=== PATIENT | female | born 1995 | race Caucasian/White ===

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

== ENCOUNTER 2017-08-03 19:49 | Emergency (ER) | payer OTHER ==
[2017-08-03 20:20] VITALS: BP 112/73
[2017-08-03] MEDS ORDERED: predniSONE 20 MG Tab PO STA (20:29)
--- NOTE | 2017-08-03 20:37 | EDM.PDOC ---
ED HPI GENERAL MEDICAL PROBLEM - General Chief Complaint: Skin Complaint Stated Complaint: HIVES ALL OVER BODY SKIN COMPLAINT Time Seen by Provider: 08/03/17 20:14 Source of Information: Reports: Patient, Family (Mother), Significant Other ( Boyfriend) History Limitations: Reports: No Limitations - History of Present Illness INITIAL COMMENTS - FREE TEXT/NARRATIVE: The patient states that she developed generalized urticaria around midnight last night after taking a new control pill that she started this past 07/30/2017. She does not take any other medications. The last food she ate before developing the urticaria was pepperoni pizza around 17:00 yesterday evening. The patient denies associated dyspnea or wheezing, angioedema, gastrointestinal upset or diarrhea. No prior similar symptoms. The patient acknowledges that she is constantly under stress. The patient states that she took Benadryl around 10 AM this, and Claritin around 4:00 PM this afternoon. She states that they helped with her pruritus somewhat. The patient does not have a PCP. Bladder Pain Score (Numeric/FACES): 8 - Related Data Allergies Allergy/AdvReac Type Severity Reaction Status Date / Time No Known Allergies Allergy Verified 11/04/16 19:42 Home Meds: Home Meds EPINEPHrine [Adrenaclick] 1 injection IM ONETIME PRN #1 kit 08/03/17 [Rx] Prednisone [IJD: predniSONE] 1 tab PO QPM #4 tab 08/03/17 [Rx] Past Medical History - Infectious Disease History Infectious Disease History: Reports: Mononucleosis - Past Surgical History HEENT Surgical History: Reports: Oral Surgery ([place] teeth extraction) Musculoskeletal Surgical History: Reports: Arthroscopic Knee (left, x 2) Social & Family History - Tobacco Use Smoking Status *Q: Never Smoker Second Hand Smoke Exposure: Yes - Caffeine Use Caffeine Use: Reports: None - Alcohol Use Alcohol Use History: Yes Alcohol Use Frequency: Socially - Recreational Drug Use Recreational Drug Use: No - Living Situation & Occupation Living situation: Reports: Single, Other (with a friend) Occupation: Employed ([employer]) ED ROS GENERAL - Review of Systems Review Of Systems: ROS reveals no pertinent complaints other than HPI. ED EXAM, SKIN/RASH Exam: See Below Exam Limited By: No Limitations General Appearance: Alert, WD/WN, Mild Distress (Appears uncomfortable) Eye Exam: Bilateral Eye: Normal Inspection Ears: Normal External Exam, Hearing Grossly Normal Nose: Normal Inspection, No Blood Throat/Mouth: Normal Inspection, Normal Lips, Normal Teeth, Normal Gums, Normal Oropharynx, Normal Voice, No Airway Compromise Head: Atraumatic, Normocephalic Neck: Normal Inspection, Full Range of Motion Respiratory/Chest: No Respiratory Distress, Lungs Clear, Normal Breath Sounds, No Accessory Muscle Use. No: Wheezing, Prolonged Expiration Cardiovascular: Normal Peripheral Pulses, Regular Rate, Rhythm, No Gallop, No JVD, No Murmur, No Rub Peripheral Pulses: 4+: Radial (L), Radial (R) GI/Abdominal: Normal Bowel Sounds, Soft, Non-Tender, No Organomegaly, No Distention, No Abnormal Bruit, No Mass (Female) Exam: Deferred Rectal (Female) Exam: Deferred Back Exam: Normal Inspection, Full Range of Motion, NT Extremities: Normal Inspection, Normal Range of Motion, No Pedal Edema, Normal Capillary Refill Neurological: Alert, Oriented, Normal Cognition, No Motor/Sensory Deficits Psychiatric: Normal Affect Skin: Warm, Dry, Intact, Other (Generalized urticaria) Course - Vital Signs Last Recorded V/S: Last Vital Signs Temp 37.4 C 08/03/17 20:20 Pulse 76 08/03/17 20:01 Resp 18 08/03/17 20:20 BP 112/73 08/03/17 20:20 Pulse Ox 99 08/03/17 20:20 - Orders/Labs/Meds Meds: Medications Discontinued Medications Generic Name Dose Route Start Last Admin Trade Name Fredrickq PRN Reason Stop Dose Admin Prednisone 60 mg 08/03/17 20:29 08/03/17 20:36 Prednisone PO 08/03/17 20:30 60 mg ONETIME STA Administration - Re-Assessments/Exams Free Text/Narrative Re-Assessment/Exam: 08/03/17 20:29 The patient presents with approximately 20 hours of generalized urticaria with pruritus, concerning for an allergic reaction, however, this could just as easily be due to idiopathic urticaria, and there are several features that suggested it might be, including that these developed 5 hours after she last ate anything, she does not have angioedema, pulmonary symptoms, or gastrointestinal symptoms, all of which one would ordinarily expect with an allergic reaction to something that she ate. For today's purposes, I will treat the patient with 60 mg prednisone, and discharge her home with a prescription for prednisone 20 mg nightly for the next 4 nights. I will also prescribe an epinephrine autoinjector kit, and refer the patient to an Ornamental Iron Worker Apprentice for evaluation. I advised her to try to stay as cool as possible until the urticaria resolves, and take an antihistamine as needed for pruritus. Departure - Departure Time of Disposition: 20:32 Disposition: Home, Self-Care 01 Condition: Good Clinical Impression: Urticaria - Discharge Information Prescriptions: EPINEPHrine [Adrenaclick] 1 injection IM ONETIME PRN #1 kit PRN Reason: Shortness Of Breath Prednisone [IJD: predniSONE] 1 tab PO QPM #4 tab Instructions: Hives, [id number] Referrals: PCP,None [Primary Care Provider] - Shelly Villegas MD [Ordering Only Provider] - Forms: ED Department Discharge Additional Instructions: You were seen in the emergency room for generalized hives. The cause of your hives is not clear. It may be idiopathic urticaria ("stress hives"), or it may be due to an allergic reaction. You have been started on the steroid prednisone. A prescription for prednisone has been sent to the [facility] located in the [place] store. Take one tablet every evening, starting tomorrow evening, 08/04/2017, as prescribed. You may also take an antihistamine to help reduce itchiness. Try to avoid heat, as heat tends to make hives worse. You can apply a cold pack to especially itchy areas. A prescription for an epinephrine injection kit was also sent to the Pharmacy. Read the instructions carefully to become familiar with the device. Inject yourself in the anterolateral thigh if you're having an allergic reaction that involves wheezing and shortness of breath. If you inject yourself, you MUST go to the closest ER. Follow-up with the Ornamental Iron Worker Apprentice Dr. Villegas at the next available appointment. If any other problems, please do not hesitate to return to the ER.
== END 2017-08-03 20:50 | disposition home or self-care (01) ==
LOC: JD.ED 19:49
DX: L50.9 Urticaria, unspecified (principal)
CPT/HCPCS: 99283; A9270

== ENCOUNTER 2021-03-22 14:21 | Inpatient (IN) | payer OTHER ==
[2021-03-22] MEDS ORDERED: Nalbuphine 10 MG/1 ML Vial IVPUSH PRN (15:22)
[2021-03-22] MEDS ORDERED: Sodium Chloride 0.9% 10 ML Syringe FLUSH PRN (15:22)
[2021-03-22] MEDS ORDERED: Calcium Carbonate 500 MG Tab.Chew PO PRN (15:22)
[2021-03-22] MEDS ORDERED: Oxytocin/Lactated Ringers 10 UNIT/1,000 ML BAG IV SCH ×2 (15:30)
[2021-03-22] MEDS ORDERED: Ondansetron 4 MG/2 ML SDV IVPUSH PRN (15:34)
[2021-03-22] MEDS ORDERED: ePHEDrine 50 MG/ML SDV IVPUSH PRN (15:34)
[2021-03-22] MEDS ORDERED: fentaNYL 100 MCG/2 ML SDV EPIDUR PRN (15:34)
--- NOTE | 2021-03-22 15:42 | PCM.PREANE ---
Preanesthetic Assessment - Procedure Proposed Procedure: please disregard this document: unable to delete. - Physical Assessment Vital Signs: HR: Sat: Temp: Resp: B/P: - Allergies Allergies/Adverse Reactions: Allergies Allergy/AdvReac Type Severity Reaction Status Date / Time No Known Allergies Allergy Verified 11/04/16 19:42 PreAnesthesia Questionnaire - Past Health History Medical/Surgical History: Denies Medical/Surgical History - Infectious Disease History Infectious Disease History: Reports: Mononucleosis - Past Surgical History HEENT Surgical History: Reports: Oral Surgery ([place] teeth extraction) Musculoskeletal Surgical History: Reports: Arthroscopic Knee (left, x 2) - HOME MEDS Home Medications: Home Meds EPINEPHrine [Adrenaclick] 1 injection IM ONETIME PRN #1 kit 08/03/17 [Rx] Acetaminophen [Tylenol] 650 mg PO Q4H PRN tablet 03/25/21 [Rx] Ibuprofen [Motrin] 600 mg PO Q4H PRN tablet 03/25/21 [Rx] Vit with Ca/FA/Iron [ Plus Iron] 1 each PO DAILY tablet 03/25/21 [Rx] - CURRENT (IN HOUSE) MEDS Current Meds: Current Medications Calcium Carbonate/Glycine (Calcium Carbonate 500 Mg Tab.Chew) 1,000 mg PO Q2H PRN PRN Reason: Indigestion Ephedrine Sulfate (Ephedrine 50 Mg/Ml Sdv) 5 mg IVPUSH ASDIRECTED PRN PRN Reason: Hypotension Fentanyl (Fentanyl 100 Mcg/2 Ml Sdv) 100 mcg EPIDUR Q3H PRN PRN Reason: Pain Fentanyl/Bupivacaine HCl (Bupivacaine/Fentanyl/Ns 100 Ml Bag) 100 ml EPIDUR ASDIRECTED DARRIN Oxytocin/Lactated Ringer's (Pitocin In Lr 10 Units/1,000 Ml) 10 unit in 1,000 mls @ 12 mls/hr IV TITRATE DARRIN; Protocol Oxytocin/Lactated Ringer's (Pitocin In Lr 10 Units/1,000 Ml) 10 unit in 1,000 mls @ 500 mls/hr IV .CONTINUOUS DARRIN Lactated Ringer's (Ringers, Lactated) 1,000 mls @ 100 mls/hr IV ASDIRECTED DARRIN Miscellaneous Medication (Phenylephrine Hcl In 0.9% Nacl 1 Mg/10 Ml Syringe) 0.1 mg IVPUSH Q10M PRN PRN Reason: Hypotension Nalbuphine HCl (Nalbuphine 10 Mg/1 Ml Vial) 10 mg IVPUSH Q2H PRN PRN Reason: Pain Ondansetron HCl (Ondansetron 4 Mg/2 Ml Sdv) 4 mg IVPUSH ONETIME PRN PRN Reason: Nausea/Vomiting Sodium Chloride (Sodium Chloride 0.9% 10 Ml Syringe) 10 ml FLUSH ASDIRECTED PRN PRN Reason: Keep Vein Open
[2021-03-22] MEDS ORDERED: Bupivacaine/fentaNYL/NS 100 ML Bag EPIDUR SCH (15:45)
[2021-03-22] MEDS ORDERED: Misoprostol 25 MCG (1/4 of 100 MCG) Tab VAG ONE (16:02)
--- NOTE | 2021-03-22 18:30 | PCM.LDHP ---
L&D History of Present Illness - General Date of Service: 03/22/21 Admit Problem/Dx: Patient Status Order with Admit Dx/Problem 03/22/21 15:22 Patient Status [ADT] Routine Admission Diagnosis/Problem Admission Diagnosis/Problem - History of Present Illness Introduction:: 25 year old at 40 weeks here with SROM. PNC with myself without complications. - Related Data Allergies/Adverse Reactions: Allergies Allergy/AdvReac Type Severity Reaction Status Date / Time No Known Allergies Allergy Verified 11/04/16 19:42 Home Medications: Home Meds EPINEPHrine [Adrenaclick] 1 injection IM ONETIME PRN #1 kit 08/03/17 [Rx] Prednisone [IJD: predniSONE] 1 tab PO QPM #4 tab 08/03/17 [Rx] Past Medical History - Past Health History Medical/Surgical History: Denies Medical/Surgical History - Infectious Disease History Infectious Disease History: Reports: Mononucleosis - Past Surgical History HEENT Surgical History: Reports: Oral Surgery ([place] teeth extraction) Musculoskeletal Surgical History: Reports: Arthroscopic Knee (left, x 2) Social & Family History - Family History Family Medical History: No Pertinent Family History - Tobacco Use Tobacco Use Status *Q: Never Tobacco User Second Hand Smoke Exposure: No - Caffeine Use Caffeine Use: Reports: None - Recreational Drug Use Recreational Drug Use: No - Living Situation & Occupation Living situation: Reports: Single, Other (with a friend) Occupation: Employed (Home [employer]) H&P Review of Systems - Review of Systems: Review Of Systems: See Below General: Reports: No Symptoms HEENT: Reports: No Symptoms Pulmonary: Reports: No Symptoms Cardiovascular: Reports: No Symptoms Gastrointestinal: Reports: No Symptoms Genitourinary: Reports: No Symptoms Musculoskeletal: Reports: No Symptoms Skin: Reports: No Symptoms Psychiatric: Reports: No Symptoms Neurological: Reports: No Symptoms Hematologic/Lymphatic: Reports: No Symptoms Immunologic: Reports: No Symptoms L&D Exam - Exam Exam: See Below - Vital Signs Vital Signs: Last Vital Signs Temp 37.0 C 03/22/21 15:22 Pulse 83 03/22/21 15:22 Resp 16 03/22/21 15:22 BP 110/71 03/22/21 15:22 Pulse Ox 96 03/22/21 15:22 Weight: 72.257 kg - OB Specific Contraction Intensity: Irritability Movement: Active Heart Tones: Present Heart Rate (FHR) Variability: Moderate (6-25 bpm) Presentation: Vertex - Mendenhall Score Mendenhall Score Cervix Position: Anterior Mendenhall Score Consistency: Medium Mendenhall Score Effacement: 0-30% Mendenhall Score Dilation: 1-2 cm Mendenhall Score 's Station: -3 Mendenhall Score Total: 4 - Exam General: Alert, Oriented HEENT: PERRLA, Conjunctiva Clear, EACs Clear, EOMI, Hearing Intact, Mucosa Moist & [place], Nares Patent, Normal Nasal Septum, Posterior Pharynx Clear, TMs Clear Neck: Supple, Trachea Midline Lungs: Clear to Auscultation, Normal Respiratory Effort Cardiovascular: Regular Rate, Regular Rhythm GI/Abdominal Exam: Normal Bowel Sounds, Soft, Non-Tender, No Organomegaly, No Distention, No Abnormal Bruit, No Mass, Pelvis Stable Back Exam: Normal Inspection Extremities: Normal Inspection, Normal Range of Motion Skin: Warm, Dry Neurological: Cranial Nerves Intact Psychiatric: Alert, Normal Affect - Patient Data Lab Results Last 24 hrs: Laboratory Results - last 24 hr 03/22/21 03/22/21 03/22/21 Range/Units 15:45 15:48 15:48 WBC 13.92 H (3.98-10.04) K/mm3 RBC 4.25 (3.98-5.22) M/mm3 Hgb 12.3 D (11.2-15.7) gm/dl Hct 37.2 (34.1-44.9) % MCV 87.5 (79.4-94.8) fl MCH 28.9 (25.6-32.2) pg MCHC 33.1 (32.2-35.5) g/dl RDW Std Deviation 39.4 (36.4-46.3) fL Plt Count 158 L (182-369) K/mm3 MPV 12.1 (9.4-12.3) fl Neut % (Auto) 77.9 H (34.0-71.1) % Lymph % (Auto) 14.7 L (19.3-51.7) % [place] % (Auto) 6.8 (4.7-12.5) % Eos % (Auto) 0.3 L (0.7-5.8) Baso % (Auto) 0.1 (0.1-1.2) % Neut # (Auto) 10.84 H (1.56-6.13) K/mm3 Lymph # (Auto) 2.05 (1.18-3.74) K/mm3 [place] # (Auto) 0.94 H (0.24-0.36) K/mm3 Eos # (Auto) 0.04 (0.04-0.36) K/mm3 Baso # (Auto) 0.02 (0.01-0.08) K/mm3 SARS-CoV-2 RNA (CAPRI) Negative (NEGATIVE) Blood Type A POSITIVE Gel Antibody Screen Negative Result Diagrams: 03/22/21 15:48 Problem List Initiated/Reviewed/Updated: Yes Orders Last 24hrs: Active Orders 24 hr Category Date Time Status Patient Status [ADT] Routine ADT 03/22/21 15:22 Active Activity as Tolerated [RC] PFP Care 03/22/21 15:22 Active Communication Order [RC] ASDIRECTED Care 03/22/21 15:22 Active Heart Tones [RC] ASDIRECTED Care 03/22/21 15:23 Active Non Stress Test [RC] PER UNIT ROUTINE Care 03/22/21 15:22 Active Notify Provider [RC] ASDIRECTED Care 03/22/21 15:34 Active Notify Provider [RC] PFP Care 03/22/21 15:22 Active Notify Provider [RC] PRN Care 03/22/21 15:22 Active Oxygen Therapy [RC] ASDIRECTED Care 03/22/21 15:34 Active Peripheral IV Care [RC] . DIRECTED Care 03/22/21 15:23 Active Pulse Oximetry [RC] ASDIRECTED Care 03/22/21 15:34 Active Pump Management, Intrathecal [RC] ASDIRECTED Care 03/22/21 15:28 Active Urinary Catheter Assessment [RC] ASDIRECTED Care 03/22/21 15:22 Active Vital Signs [RC] PER UNIT ROUTINE Care 03/22/21 15:22 Active Regular Diet [DIET] Diet 03/22/21 Lunch Active PATIENT RETYPE [BBK] Routine Lab 03/22/21 16:38 Ordered RAPID PLASMA REAGIN,RPR [CHEM] Routine Lab 03/22/21 15:48 Received Bupivacaine/fentaNYL/NS [fentaNYL/Bupivacaine/NS 2 MCG- Med 03/22/21 15:45 Active 0.125% 100 ML] 100 ml EPIDUR ASDIRECTED Calcium Carbonate [Tums] Med 03/22/21 15:22 Active 1,000 mg PO Q2H PRN Lactated Ringers [Ringers, Lactated] 1,000 ml Med 03/22/21 15:30 Active IV ASDIRECTED Nalbuphine [Nubain] Med 03/22/21 15:22 Active 10 mg IVPUSH Q2H PRN Ondansetron [Zofran] Med 03/22/21 15:34 Active 4 mg IVPUSH ONETIME PRN Oxytocin/Lactated Ringers [Pitocin in LR 10 Units/1,000 Med 03/22/21 15:30 Active ML] 10 unit in 1,000 ml IV .CONTINUOUS Oxytocin/Lactated Ringers [Pitocin in LR 10 Units/1,000 Med 03/22/21 15:30 Active ML] 10 unit in 1,000 ml IV TITRATE Phenylephrine HCl In 0.9% NaCl [Phenylephrine 1 MG/10 Med 03/22/21 15:34 Active ML-NS] 0.1 mg IVPUSH Q10M PRN Sodium Chloride 0.9% [Saline Flush] Med 03/22/21 15:22 Active 10 ml FLUSH ASDIRECTED PRN ePHEDrine [ePHEDrine sulfate] Med 03/22/21 15:34 Active 5 mg IVPUSH ASDIRECTED PRN fentaNYL [Sublimaze] Med 03/22/21 15:34 Active 100 mcg EPIDUR Q3H PRN Electronic Heart Tones Ext w TOCO [WOMSER] Oth 03/22/21 15:22 Ordered Routine Electronic Heart Tones Internal [WOMSER] Per Unit Oth 03/22/21 15:22 Ordered Routine Peripheral IV Insertion Adult [OM.PC] Routine Oth 03/22/21 15:22 Ordered Resuscitation Status Routine Resus Stat 03/22/21 15:22 Ordered Medication Orders Calcium Carbonate/Glycine (Calcium Carbonate 500 Mg Tab.Chew) 1,000 mg PO Q2H PRN PRN Reason: Indigestion Ephedrine Sulfate (Ephedrine 50 Mg/Ml Sdv) 5 mg IVPUSH ASDIRECTED PRN PRN Reason: Hypotension Stop: 03/22/21 23:00 Fentanyl (Fentanyl 100 Mcg/2 Ml Sdv) 100 mcg EPIDUR Q3H PRN PRN Reason: Pain Stop: 03/22/21 23:00 Fentanyl/Bupivacaine HCl (Bupivacaine/Fentanyl/Ns 100 Ml Bag) 100 ml EPIDUR ASDIRECTED DARRIN Oxytocin/Lactated Ringer's (Pitocin In Lr 10 Units/1,000 Ml) 10 unit in 1,000 mls @ 12 mls/hr IV TITRATE DARRIN; Protocol Oxytocin/Lactated Ringer's (Pitocin In Lr 10 Units/1,000 Ml) 10 unit in 1,000 mls @ 500 mls/hr IV .CONTINUOUS DARRIN Lactated Ringer's (Ringers, Lactated) 1,000 mls @ 100 mls/hr IV ASDIRECTED DARRIN Miscellaneous Medication (Phenylephrine Hcl In 0.9% Nacl 1 Mg/10 Ml Syringe) 0.1 mg IVPUSH Q10M PRN PRN Reason: Hypotension Stop: 03/22/21 23:00 Nalbuphine HCl (Nalbuphine 10 Mg/1 Ml Vial) 10 mg IVPUSH Q2H PRN PRN Reason: Pain Ondansetron HCl (Ondansetron 4 Mg/2 Ml Sdv) 4 mg IVPUSH ONETIME PRN PRN Reason: Nausea/Vomiting Stop: 03/22/21 23:00 Sodium Chloride (Sodium Chloride 0.9% 10 Ml Syringe) 10 ml FLUSH ASDIRECTED PRN PRN Reason: Keep Vein Open Assessment/Plan Comment:: 25 year old at term with SROM Minimal contractions. Cytotec --> gomez bulb
--- NOTE | 2021-03-22 18:47 | PCM.PRNOTE ---
- Free Text/Narrative Note: Speculum placed. Galloway bulb placed through cervix with assistance of ring forceps. 30 cc of saline instilled. Patient tolerated well.
[2021-03-22] MEDS: Lactated Ringers 1,000 ML IV SCH (23:40)
[2021-03-23] MEDS ORDERED: ePHEDrine 50 MG/ML SDV IVPUSH PRN ×2 (07:01→07:18)
[2021-03-23] MEDS ORDERED: Ondansetron 4 MG/2 ML SDV IVPUSH PRN (07:02)
[2021-03-23] MEDS ORDERED: fentaNYL 100 MCG/2 ML SDV EPIDUR PRN ×2 (07:02→07:18)
[2021-03-23] MEDS ORDERED: diphenhydrAMINE 50 MG/ML SDV IVPUSH PRN (07:18)
[2021-03-23] MEDS: Lactated Ringers 1,000 ML IV SCH ×4 (07:45→17:08)
--- NOTE | 2021-03-23 08:10 | PCM.PREANE ---
Preanesthetic Assessment - Procedure Proposed Procedure: epidural - Anesthesia/Transfusion/Family Hx Anesthesia History: Prior Anesthesia Without Reaction Family History of Anesthesia Reaction: No Transfusion History: No Prior Transfusion(s) Intubation History: Unknown - Review of Systems General: Fatigue, Malaise Pulmonary: No Symptoms Cardiovascular: No Symptoms Gastrointestinal: Abdominal Pain (labor) Neurological: No Symptoms Other: Reports: None - Physical Assessment NPO Status Date: 03/22/21 Vital Signs: Last Vital Signs Temp 37.0 C 03/22/21 15:22 Pulse 83 03/22/21 15:22 Resp 16 03/22/21 15:22 BP 110/71 03/22/21 15:22 Pulse Ox 96 03/22/21 15:22 Height: 1.6 m Weight: 72.257 kg ASA Class: 2 Mental Status: Alert & Oriented x3 Airway Class: Mallampati = 1 Dentition: Reports: Normal Dentition Thyro-Mental Finger Breadths: 3 Mouth Opening Finger Breadths: 3 ROM/Head Extension: Full Lungs: Clear to Auscultation Cardiovascular: Regular Rate, Regular Rhythm - Lab Values: Laboratory Last Values WBC 13.92 K/mm3 (3.98-10.04) H 03/22/21 15:48 RBC 4.25 M/mm3 (3.98-5.22) 03/22/21 15:48 Hgb 12.3 gm/dl (11.2-15.7) D 03/22/21 15:48 Hct 37.2 % (34.1-44.9) 03/22/21 15:48 MCV 87.5 fl (79.4-94.8) 03/22/21 15:48 MCH 28.9 pg (25.6-32.2) 03/22/21 15:48 MCHC 33.1 g/dl (32.2-35.5) 03/22/21 15:48 RDW Std Deviation 39.4 fL (36.4-46.3) 03/22/21 15:48 Plt Count 158 K/mm3 (182-369) L 03/22/21 15:48 MPV 12.1 fl (9.4-12.3) 03/22/21 15:48 Neut % (Auto) 77.9 % (34.0-71.1) H 03/22/21 15:48 Lymph % (Auto) 14.7 % (19.3-51.7) L 03/22/21 15:48 [place] % (Auto) 6.8 % (4.7-12.5) 03/22/21 15:48 Eos % (Auto) 0.3 (0.7-5.8) L 03/22/21 15:48 Baso % (Auto) 0.1 % (0.1-1.2) 03/22/21 15:48 Neut # (Auto) 10.84 K/mm3 (1.56-6.13) H 03/22/21 15:48 Lymph # (Auto) 2.05 K/mm3 (1.18-3.74) 03/22/21 15:48 [place] # (Auto) 0.94 K/mm3 (0.24-0.36) H 03/22/21 15:48 Eos # (Auto) 0.04 K/mm3 (0.04-0.36) 03/22/21 15:48 Baso # (Auto) 0.02 K/mm3 (0.01-0.08) 03/22/21 15:48 RPR Non-reactive (NONREACTIVE) 03/22/21 15:48 SARS-CoV-2 RNA (CAPRI) Negative (NEGATIVE) 03/22/21 15:45 Blood Type A POSITIVE 03/22/21 15:48 Gel Antibody Screen Negative 03/22/21 15:48 - Allergies Allergies/Adverse Reactions: Allergies Allergy/AdvReac Type Severity Reaction Status Date / Time No Known Allergies Allergy Verified 11/04/16 19:42 - Anesthesia Plan Pre-Op Medication Ordered: None - Acknowledgements Anesthesia Type Planned: Epidural Pt an Appropriate Candidate for the Planned Anesthesia: Yes Alternatives and Risks of Anesthesia Discussed w Pt/Guardian: Yes Pt/Guardian Understands and Agrees with Anesthesia Plan: Yes PreAnesthesia Questionnaire - Past Health History Medical/Surgical History: Denies Medical/Surgical History Gastrointestinal History: Reports: GERD - Infectious Disease History Infectious Disease History: Reports: Mononucleosis - Past Surgical History HEENT Surgical History: Reports: Oral Surgery ([place] teeth extraction) Musculoskeletal Surgical History: Reports: Arthroscopic Knee (left, x 2) - SUBSTANCE USE Tobacco Use Status *Q: Never Tobacco User Second Hand Smoke Exposure: No Recreational Drug Use History: No - HOME MEDS Home Medications: Home Meds EPINEPHrine [Adrenaclick] 1 injection IM ONETIME PRN #1 kit 08/03/17 [Rx] Prednisone [IJD: predniSONE] 1 tab PO QPM #4 tab 08/03/17 [Rx] - CURRENT (IN HOUSE) MEDS Current Meds: Current Medications Calcium Carbonate/Glycine (Calcium Carbonate 500 Mg Tab.Chew) 1,000 mg PO Q2H PRN PRN Reason: Indigestion Diphenhydramine HCl (Diphenhydramine 50 Mg/Ml Sdv) 25 mg IVPUSH Q6H PRN PRN Reason: pruritis Ephedrine Sulfate (Ephedrine 50 Mg/Ml Sdv) 5 mg IVPUSH ASDIRECTED PRN PRN Reason: Hypotension Fentanyl (Fentanyl 100 Mcg/2 Ml Sdv) 100 mcg EPIDUR Q3H PRN PRN Reason: Pain Last Admin: 03/23/21 07:53 Dose: 100 mcg Documented by: Fentanyl/Bupivacaine HCl (Bupivacaine/Fentanyl/Ns 100 Ml Bag) 100 ml EPIDUR ASDIRECTED DARRIN Last Admin: 03/23/21 07:52 Dose: 100 ml Documented by: Oxytocin/Lactated Ringer's (Pitocin In Lr 10 Units/1,000 Ml) 10 unit in 1,000 mls @ 12 mls/hr IV TITRATE DARRIN; Protocol Last Titration: 03/23/21 05:12 Dose: 10 munits/min, 60 mls/hr Documented by: Oxytocin/Lactated Ringer's (Pitocin In Lr 10 Units/1,000 Ml) 10 unit in 1,000 mls @ 500 mls/hr IV .CONTINUOUS DARRIN Lactated Ringer's (Ringers, Lactated) 1,000 mls @ 100 mls/hr IV ASDIRECTED DARRIN Last Admin: 03/22/21 23:40 Dose: 40 mls/hr Documented by: Miscellaneous Medication (Phenylephrine Hcl In 0.9% Nacl 1 Mg/10 Ml Syringe) 0.1 mg IVPUSH Q10M PRN PRN Reason: Hypotension Nalbuphine HCl (Nalbuphine 10 Mg/1 Ml Vial) 10 mg IVPUSH Q2H PRN PRN Reason: Pain Ondansetron HCl (Ondansetron 4 Mg/2 Ml Sdv) 4 mg IVPUSH ONETIME PRN PRN Reason: Nausea/Vomiting Sodium Chloride (Sodium Chloride 0.9% 10 Ml Syringe) 10 ml FLUSH ASDIRECTED PRN PRN Reason: Keep Vein Open Discontinued Medications Ephedrine Sulfate (Ephedrine 50 Mg/Ml Sdv) 5 mg IVPUSH ASDIRECTED PRN PRN Reason: Hypotension Stop: 03/22/21 23:00 Ephedrine Sulfate (Ephedrine 50 Mg/Ml Sdv) 5 mg IVPUSH ASDIRECTED PRN PRN Reason: Hypotension Fentanyl (Fentanyl 100 Mcg/2 Ml Sdv) 100 mcg EPIDUR Q3H PRN PRN Reason: Pain Stop: 03/22/21 23:00 Fentanyl (Fentanyl 100 Mcg/2 Ml Sdv) 100 mcg EPIDUR Q3H PRN PRN Reason: Pain Miscellaneous Medication (Phenylephrine Hcl In 0.9% Nacl 1 Mg/10 Ml Syringe) 0.1 mg IVPUSH Q10M PRN PRN Reason: Hypotension Stop: 03/22/21 23:00 Misoprostol (Misoprostol 25 Mcg (1/4 Of 100 Mcg) Tab) 50 mcg VAG ONETIME ONE Stop: 03/22/21 16:03 Last Admin: 03/22/21 16:18 Dose: 50 mcg Documented by: Ondansetron HCl (Ondansetron 4 Mg/2 Ml Sdv) 4 mg IVPUSH ONETIME PRN PRN Reason: Nausea/Vomiting Stop: 03/22/21 23:00
[2021-03-23] MEDS ORDERED: Sodium Chloride 0.9% 1,000 ML ONE (16:44)
[2021-03-23] MEDS ORDERED: ePHEDrine 50 MG/ML SDV ONE (18:00)
[2021-03-23] MEDS ORDERED: Bupivacaine 0.25% 10 ML SDV ONE (18:00)
[2021-03-23] MEDS ORDERED: Witch Hazel Medicated Pads 40/Jar TOP PRN (20:30)
[2021-03-23] MEDS ORDERED: Benzocaine/Menthol 20%-0.5% Spray 78 GM Cannister TOP PRN (20:30)
[2021-03-23] MEDS ORDERED: Acetaminophen 325 MG Tab PO PRN (20:30)
--- NOTE | 2021-03-23 20:33 | PCM.SN.2 ---
- Free Text/Narrative Note: Delivery note: Stage I: 25 year old G1 NOW PARA 1-0-0-1 FEMALE ADMITTED AT 40-1/7 WEEKS GESTATIONAL AGE WITH SPONTANEOUS RUPTURE of membranes with resultant clear amniotic fluid. She progressed in labor slowly and therefore had Pitocin augmentation. She underwent an epidural for labor analgesia with good results. She progressed to complete cervical dilation at about 1830 hrs. She began experiencing some heart rate decelerations that appeared variable in type occurring with contractions. These became rather severe with decreas down to approximately 60 to 80 bpm lasting for upwards of 1 minute each. Variability remained excellent during the course of this. There was a heart rate shoulder before and after the variable decelerations and cord compression was suspected. She had an intrauterine pressure catheter placed and through this amnioinfusion was done with normal saline. This failed to significantly improve the variable decelerations however. Scalp electrode had also been placed for closer evaluation of heart tones. Decision was made to proceed to vacuum extraction to assist in delivery. The procedure, its risk, benefits, alternatives of care including proceeding to section were all discussed with patient and her mother. She appeared to understand and gave verbal consent to proceed. Stage II: Vacuum extraction was then accomplished using a Silastic cup. The cup was applied and using negative pressure to 1 atmosphere over the course of 3 contractions the baby delivered. Vacuum was stopped in between contractions. No pop offs were noted. Midline episiotomy was made but no extensions were noted. No lacerations occurred. The baby delivered in a right occiput posterior position with what appeared to be some asynclitism. Shoulders delivered without incident. There were no nuchal cord or shoulder cord cords noted. Etiology of the variable decelerations was not determined. The baby was a viable, 3270 g (7 pounds 3.3 ounce) male infant with Apgars of 5, 9 and 9 at 1, 5 and 10-minute intervals. Length was 21.0 inches. Cord was clamped within the first minute was cut by the patient's mother. The baby was taken to the warmer for evaluation and oxygen blow-by. Baby responded to stimulation and oxygen blow-by well. Cord blood was obtained. Pitocin was increased to 500 cc an hour to facilitate increase in uterine tone and decrease likelihood of bleeding. Stage III: The placenta delivered at 1952 hrs. in a Baumann presentation. It appeared intact and complete and was discarded per patient desire. Umbilical cord had 3 vessels. Midline episiotomy was repaired in a routine fashion using 3-0 Monocryl sutur. The patient tolerated this well. Labor epidural analgesia was used for episiotomy repair anesthesia with good results. Estimated blood loss was 200 cc. Condition: Good. Patient plans to breast-feed.
[2021-03-23] MEDS: Ibuprofen 600 MG Tab PO PRN (20:51)
[2021-03-24] MEDS: Ibuprofen 600 MG Tab PO PRN ×2 (06:31→20:58)
[2021-03-24] MEDS ORDERED: Prenatal Multivitamin with Calcium/Folic Acid/Iron Tab PO SCH (09:00)
--- NOTE | 2021-03-24 11:02 | PCM.SN.2 ---
- Free Text/Narrative Note: note: Patient is doing well in the period. Minimal lochia, voiding well, ambulated without problems. Nursing without concerns. Patient is afebrile, vital signs are stable Abdomen is flat, soft, uterus is below the umbilicus and is firm and nontender. Legs are nontender. Assessment: recovery going well. Plan: Routine care. Patient be discharged home within the next 24-48 hours.
[2021-03-24] MEDS ORDERED: Docusate Sodium 100 MG Cap PO SCH (21:00)
--- NOTE | 2021-03-25 04:16 | PCM.DCSUM1 ---
Discharge Summary - Hospital Course Free Text/Narrative:: Stage I: 25 year old G1 now P 1-0-0-1 female admitted at 40-1/7 weeks gestational age with spontaneous rupture of membranes with resultant clear amniotic fluid. She progressed in labor slowly and therefore had Pitocin augmentation. She underwent an epidural for labor analgesia with good results. She progressed to complete cervical dilation at about 1830 hrs. She began experiencing some heart rate decelerations that appeared variable in type occurring with contractions. These became rather severe with decreas down to approximately 60 to 80 bpm lasting for upwards of 1 minute each. Variability remained excellent during the course of this. There was a heart rate shoulder before and after the variable decelerations and cord compression was suspected. She had an intrauterine pressure catheter placed and through this amnioinfusion was done with normal saline. This failed to significantly improve the variable decelerations however. Scalp electrode had also been placed for closer evaluation of heart tones. Decision was made to proceed to vacuum extraction to assist in delivery. The procedure, its risk, benefits, alternatives of care including proceeding to section were all discussed with patient and her mother. She appeared to understand and gave verbal consent to proceed. Stage II: Vacuum extraction was then accomplished using a Silastic cup. The cup was applied and using negative pressure to 1 atmosphere over the course of 3 contractions the baby delivered. Vacuum was stopped in between contractions. No pop offs were noted. Midline episiotomy was made but no extensions were noted. No lacerations occurred. The baby delivered in a right occiput posterior position with what appeared to be some asynclitism. Shoulders delivered without incident. There were no nuchal cord or shoulder cord cords noted. Etiology of the variable decelerations was not determined. The baby was a viable, 3270 g (7 pounds 3.3 ounce) male with Apgars of 5, 9 and 9 at 1, 5 and 10-minute intervals. Length was 21.0 inches. Cord was clamped within the first minute was cut by the patient's mother. The baby was taken to the warmer for evaluation and oxygen blow-by. Baby responded to stimulation and oxygen blow-by well. Cord blood was obtained. Pitocin was increased to 500 cc an hour to facilitate increase in uterine tone and decrease likelihood of bleeding. Stage III: The placenta delivered at 1952 hrs. in a Baumann presentation. It appeared intact and complete and was discarded per patient desire. Umbilical cord had 3 vessels. Midline episiotomy was repaired in a routine fashion using 3-0 Monocryl sutur. The patient tolerated this well. Labor epidural analgesia was used for episiotomy repair anesthesia with good results. Estimated blood loss was 200 cc. Patient plans to breast-feed. . Patient is done well. Her vital signs and stable, she has been afebrile. Her lochia is minimal, she is voiding well and ambulating without problems. She is desiring discharge home. Diagnosis: Stroke: No - Discharge Data Discharge Date: 03/25/21 Discharge Disposition: Home, Self-Care 01 Condition: Good - Referral to Home Health Primary Care Physician: PCP None - Discharge Diagnosis/Problem(s) (1) 40 weeks gestation of SNOMED Code(s): 65694811 ICD Code: Z3A.40 - 40 WEEKS GESTATION OF Status: Acute Current Visit: Yes - Patient Instructions Diet: Regular Diet as Tolerated (Nursing to have with increased calories and c alcium is recommended) Activity: As Tolerated (No intercourse or tampons until bleeding resolves) Driving: May Drive Today Showering/Bathing: May Shower (May take a bath) Notify Provider of: Fever, Increased Pain, Swelling and Redness, Nausea and/or Vomiting - Discharge Plan Home Medications: Home Meds EPINEPHrine [Adrenaclick] 1 injection IM ONETIME PRN #1 kit 08/03/17 [Rx] Acetaminophen [Tylenol] 650 mg PO Q4H PRN tablet 03/25/21 [Rx] Ibuprofen [Motrin] 600 mg PO Q4H PRN tablet 03/25/21 [Rx] Vit with Ca/FA/Iron [ Plus Iron] 1 each PO DAILY tablet 03/25/21 [Rx] Referrals: Jackie Dobbs MD [Physician] - - Discharge Summary/Plan Comment DC Time >30 min.: No Total # of Minutes for Discharge Time: 10 Discharge Summary/Plan Comment: Discharge instructions: 1. Discharge home 2. Diet, activity and follow-up discussed with patient. Recommend nursing diet with increased calories and calcium. 3. Precautions given concern increased pain, bleeding, temperature, signs/symptoms of DVT/PE. 4. Medications per home medication was printed, discussed with and given to the patient. 5. [facility] 2 weeks. Diagnosis: Term -delivered Condition: Good - Patient Data Vitals - Most Recent: Last Vital Signs Temp 37.2 C 03/24/21 20:49 Pulse 89 03/24/21 20:49 Resp 15 03/24/21 20:49 BP 93/65 03/24/21 20:49 Pulse Ox 96 03/24/21 20:49 Weight - Most Recent: 72.257 kg Med Orders - Current: Current Medications Acetaminophen (Acetaminophen 325 Mg Tab) 650 mg PO Q4H PRN PRN Reason: mild pain or fever Benzocaine/Menthol (Benzocaine/Menthol 20%-0.5% [place] 78 Gm Cannister) 0 gm TOP ASDIRECTED PRN PRN Reason: Perineal Comfort Measure Docusate Sodium (Docusate Sodium 100 Mg Cap) 100 mg PO BID [facility] Last Admin: 03/25/21 02:27 Dose: 100 mg Documented by: Ibuprofen (Ibuprofen 600 Mg Tab) 600 mg PO Q4H PRN PRN Reason: Mild pain or fever Last Admin: 03/24/21 20:58 Dose: 600 mg Documented by: Prenat Multivit/Incoming Freight Clerk/Iron/Folic Ac ( Multivitamin With Calcium/Folic Acid/Iron Tab) 1 each PO DAILY [facility] Last Admin: 03/24/21 08:21 Dose: 1 each Documented by: Leah Vincent (Leah Vincent Medicated Pads 40/Jar) 1 pad TOP ASDIRECTED PRN PRN Reason: Perineal Comfort Measure Last Admin: 03/23/21 20:52 Dose: 1 applic Documented by: Discontinued Medications Bupivacaine HCl (Bupivacaine 0.25% 10 Ml Sdv) 10 ml .ROUTE .STK-MED ONE Stop: 03/23/21 18:01 Calcium Carbonate/Glycine (Calcium Carbonate 500 Mg Tab.Chew) 1,000 mg PO Q2H PRN PRN Reason: Indigestion Diphenhydramine HCl (Diphenhydramine 50 Mg/Ml Sdv) 25 mg IVPUSH Q6H PRN PRN Reason: pruritis Ephedrine Sulfate (Ephedrine 50 Mg/Ml Sdv) 5 mg IVPUSH ASDIRECTED PRN PRN Reason: Hypotension Stop: 03/22/21 23:00 Ephedrine Sulfate (Ephedrine 50 Mg/Ml Sdv) 5 mg IVPUSH ASDIRECTED PRN PRN Reason: Hypotension Ephedrine Sulfate (Ephedrine 50 Mg/Ml Sdv) 5 mg IVPUSH ASDIRECTED PRN PRN Reason: Hypotension Ephedrine Sulfate (Ephedrine 50 Mg/Ml Sdv) 50 mg .ROUTE .STK-MED ONE Stop: 03/23/21 18:01 Fentanyl (Fentanyl 100 Mcg/2 Ml Sdv) 100 mcg EPIDUR Q3H PRN PRN Reason: Pain Stop: 03/22/21 23:00 Fentanyl (Fentanyl 100 Mcg/2 Ml Sdv) 100 mcg EPIDUR Q3H PRN PRN Reason: Pain Fentanyl (Fentanyl 100 Mcg/2 Ml Sdv) 100 mcg EPIDUR Q3H PRN PRN Reason: Pain Last Admin: 03/23/21 07:53 Dose: 100 mcg Documented by: Fentanyl/Bupivacaine HCl (Bupivacaine/Fentanyl/Ns 100 Ml Bag) 100 ml EPIDUR ASDIRECTED DARRIN Last Admin: 03/23/21 07:52 Dose: 100 ml Documented by: Oxytocin/Lactated Ringer's (Pitocin In Lr 10 Units/1,000 Ml) 10 unit in 1,000 mls @ 12 mls/hr IV TITRATE DARRIN; Protocol Last Titration: 03/23/21 18:55 Dose: 4 munits/min, 24 mls/hr Documented by: Oxytocin/Lactated Ringer's (Pitocin In Lr 10 Units/1,000 Ml) 10 unit in 1,000 mls @ 500 mls/hr IV .CONTINUOUS DARRIN Last Admin: 03/23/21 19:49 Dose: 500 mls/hr Documented by: Lactated Ringer's (Ringers, Lactated) 1,000 mls @ 100 mls/hr IV ASDIRECTED DARRIN Last Admin: 03/23/21 17:08 Dose: 40 mls/hr Documented by: Sodium Chloride (Normal Saline) Confirm Administered Dose 1,000 mls @ as directed .ROUTE .STK-MED ONE Stop: 03/23/21 16:45 Last Admin: 03/23/21 17:32 Dose: Not Given Documented by: Miscellaneous Medication (Phenylephrine Hcl In 0.9% Nacl 1 Mg/10 Ml Syringe) 0.1 mg IVPUSH Q10M PRN PRN Reason: Hypotension Stop: 03/22/21 23:00 Miscellaneous Medication (Phenylephrine Hcl In 0.9% Nacl 1 Mg/10 Ml Syringe) 0.1 mg IVPUSH Q10M PRN PRN Reason: Hypotension Misoprostol (Misoprostol 25 Mcg (1/4 Of 100 Mcg) Tab) 50 mcg VAG ONETIME ONE Stop: 03/22/21 16:03 Last Admin: 03/22/21 16:18 Dose: 50 mcg Documented by: Nalbuphine HCl (Nalbuphine 10 Mg/1 Ml Vial) 10 mg IVPUSH Q2H PRN PRN Reason: Pain Ondansetron HCl (Ondansetron 4 Mg/2 Ml Sdv) 4 mg IVPUSH ONETIME PRN PRN Reason: Nausea/Vomiting Stop: 03/22/21 23:00 Ondansetron HCl (Ondansetron 4 Mg/2 Ml Sdv) 4 mg IVPUSH ONETIME PRN PRN Reason: Nausea/Vomiting Sodium Chloride (Sodium Chloride 0.9% 10 Ml Syringe) 10 ml FLUSH ASDIRECTED PRN PRN Reason: Keep Vein Open
[2021-03-25 08:32] VITALS: BP 95/48; PULSE 65
== END 2021-03-25 10:15 | disposition home or self-care (01) | DRG 807 ==
LOC: JD.OBCHECK 14:21 → JD.OB 14:29 → JD.OBCHECK 15:22 → JD.OB 15:22 → OBSVTOIN 03-23 19:47 → JD.OB 03-23 19:48
PROVIDERS: ADMIT Obstetrics & Gynecology; ATTEND Obstetrics & Gynecology
PROC: 10D07Z6 Extraction of Products of Conception, Vacuum, Via Natural or Artificial Opening (ICD-10-PCS; principal; 2021-03-23)
PROC: 10H07YZ Insertion of Other Device into Products of Conception, Via Natural or Artificial Opening (ICD-10-PCS; 2021-03-23)
PROC: 0W8NXZZ Division of Female Perineum, External Approach (ICD-10-PCS; 2021-03-23)
PROC: 3E0R3BZ Introduction of Anesthetic Agent into Spinal Canal, Percutaneous Approach (ICD-10-PCS; 2021-03-23)
PROC: 00HU33Z Insertion of Infusion Device into Spinal Canal, Percutaneous Approach (ICD-10-PCS; 2021-03-23)
DX: O48.0 Post-term pregnancy (principal); Z37.0 Single live birth; O76 Abnormality in fetal heart rate and rhythm complicating labor and delivery; Z3A.40 40 weeks gestation of pregnancy; Z20.822 Contact with and (suspected) exposure to COVID-19
CPT/HCPCS: 36415; 51702; 59025; 59409; 85025; 86592; 86850; 86900; 86901; A9270-GY; J2590; J3010; J3490; J7120; U0002

== ENCOUNTER 2021-04-24 13:06 | Emergency (ER) | payer OTHER ==
[2021-04-24 13:18] VITALS: BP 106/72; PULSE 93
[2021-04-24] MEDS ORDERED: Ondansetron 4 MG/2 ML SDV IVPUSH ONE (13:18)
[2021-04-24] MEDS ORDERED: Sodium Chloride 0.9% 10 ML Syringe FLUSH PRN (13:18)
[2021-04-24] MEDS ORDERED: Sodium Chloride 0.9% 1,000 ML IV SCH (13:30)
[2021-04-24] MEDS ORDERED: Ketorolac 15 MG/ML SDV IVPUSH ONE (13:44)
== END 2021-04-24 17:37 | disposition home or self-care (01) ==
LOC: JD.ED 13:06
DX: O99.893 Other specified diseases and conditions complicating puerperium (principal); M54.50 Low back pain, unspecified; K21.9 Gastro-esophageal reflux disease without esophagitis
CPT/HCPCS: 36415; 74176; 76856; 80053; 81001; 84702; 85025; 96374; 96375; 99284; J1885; J2405; J7030; 99283

== ENCOUNTER 2022-12-19 11:54 | Inpatient (IN) | payer OTHER ==
[~2022-12-19 11:54] MED LIST: Bupivacaine 0.25% 10 ML SDV ONE
[2022-12-19] MEDS ORDERED: Nalbuphine 10 MG/0.5 ML Syringe IVPUSH PRN (12:04)
[2022-12-19] MEDS ORDERED: Ondansetron 4 MG/2 ML SDV IVPUSH PRN (12:04)
[2022-12-19] MEDS ORDERED: Lidocaine 1% 50 ML MDV INJECT ONE (12:04)
[2022-12-19] MEDS ORDERED: Calcium Carbonate 500 MG Tab.Chew PO PRN (12:04)
[2022-12-19] MEDS ORDERED: Oxytocin/Lactated Ringers 10 UNIT/1,000 ML BAG IV SCH ×2 (12:15)
[2022-12-19] MEDS ORDERED: fentaNYL 100 MCG/2 ML SDV EPIDUR PRN (12:33)
[2022-12-19] MEDS ORDERED: ePHEDrine 50 MG/ML SDV IVPUSH PRN (12:33)
[2022-12-19] MEDS ORDERED: Bupivacaine/fentaNYL/NS 100 ML Bag EPIDUR PRN (12:33)
[2022-12-19] MEDS ORDERED: diphenhydrAMINE 50 MG/ML SDV IVPUSH PRN (12:33)
[2022-12-19 12:39] LABS: BASOPHILS PERCENT AUTO 0.2 % (0.0-1.0); EOSINOPHILS PERCENT AUTO 0.3 % (0.0-6.0); HEMATOCRIT 33.6 % (37.0-47.0); HEMOGLOBIN 11.1 gm/dl (12.0-16.0); IMMATURE GRAN ABSOLUTE AUTO 0.07 K/mm3 (0.00-0.05); IMMATURE GRAN PERCENT AUTO 0.5 % (0.0-0.4); LYMPHOCYTES ABSOLUTE AUTO 1.9 K/mm3 (1.0-4.8); LYMPHOCYTES PERCENT AUTO 12.8 % (24.0-44.0); MEAN CORPUSCULAR HEMOGLOBIN 28.2 pg (28.0-32.0); MEAN CORPUSCULAR VOLUME 85.5 fl (83.0-99.0); MEAN PLATELET VOLUME 11.3 fl (9.4-12.3); MONOCYTES PERCENT AUTO 6.9 % (0.0-8.0); NEUTROPHILS ABSOLUTE AUTO 11.7 K/mm3 (1.8-7.7); NEUTROPHILS PERCENT AUTO 79.3 % (41.0-71.0); PLATELET COUNT,PLT 150 K/mm3 (150-400); RED BLOOD CELL COUNT 3.93 M/mm3 (4.10-5.30); WHITE BLOOD CELL COUNT,WBC 14.74 K/mm3 (3.9-11.3)
[2022-12-19] MEDS: Lactated Ringers 1,000 ML IV SCH ×2 (14:23→16:40)
[2022-12-19] MEDS ORDERED: Benzocaine/Menthol 20%-0.5% Spray 78 GM Cannister TOP PRN (17:54)
[2022-12-19] MEDS ORDERED: Witch Hazel Medicated Pads 40/Jar TOP PRN (17:54)
[2022-12-19] MEDS: Ibuprofen 600 MG Tab PO PRN (21:44)
[2022-12-19] MEDS: Acetaminophen 325 MG Tab PO PRN (21:47)
[2022-12-20] MEDS: Acetaminophen 325 MG Tab PO PRN (06:48)
[2022-12-20] MEDS: Ibuprofen 600 MG Tab PO PRN (06:48)
[2022-12-20 18:37] VITALS: BP 105/62; PULSE 68
== END 2022-12-20 18:00 | disposition home or self-care (01) | DRG 807 ==
LOC: JD.OB 11:54
PROVIDERS: ADMIT Obstetrics & Gynecology; ATTEND Obstetrics & Gynecology
PROC: 10E0XZZ Delivery of Products of Conception, External Approach (ICD-10-PCS; principal; 2022-12-19)
PROC: 0KQM0ZZ Repair Perineum Muscle, Open Approach (ICD-10-PCS; 2022-12-19)
PROC: 10907ZC Drainage of Amniotic Fluid, Therapeutic from Products of Conception, Via Natural or Artificial Opening (ICD-10-PCS; 2022-12-19)
PROC: 3E033VJ Introduction of Other Hormone into Peripheral Vein, Percutaneous Approach (ICD-10-PCS; 2022-12-19)
PROC: 3E0R3BZ Introduction of Anesthetic Agent into Spinal Canal, Percutaneous Approach (ICD-10-PCS; 2022-12-19)
PROC: 00HU33Z Insertion of Infusion Device into Spinal Canal, Percutaneous Approach (ICD-10-PCS; 2022-12-19)
DX: O70.1 Second degree perineal laceration during delivery (principal); Z37.0 Single live birth; O69.81X0 Labor and delivery complicated by cord around neck, without compression, not applicable or unspecified; Z88.8 Allergy status to other drugs, medicaments and biological substances; Z91.030 Bee allergy status; Z3A.39 39 weeks gestation of pregnancy
CPT/HCPCS: 01967; 36415; 59025; 59409; 85025; 86592; 86850; 86900; 86901; A9270-GY; J2590; J3010; J3490; J7120

== ENCOUNTER 2023-08-16 23:23 | Emergency (ER) | payer SELFPAY ==
[2023-08-16 23:55] LABS: BASOPHILS PERCENT AUTO 0.3 % (0.0-1.0); EOSINOPHILS ABSOLUTE AUTO 0.1 K/mm3 (0.0-0.4); EOSINOPHILS PERCENT AUTO 0.5 % (0.0-6.0); HEMATOCRIT 43.5 % (37.0-47.0); IMMATURE GRAN ABSOLUTE AUTO 0.02 K/mm3 (0.00-0.05); IMMATURE GRAN PERCENT AUTO 0.2 % (0.0-0.4); LYMPHOCYTES ABSOLUTE AUTO 2.1 K/mm3 (1.0-4.8); LYMPHOCYTES PERCENT AUTO 19.1 % (24.0-44.0); MEAN CORPUSCULAR HEMOGLOBIN 29.5 pg (28.0-32.0); MEAN CORPUSCULAR HGB CONC 34.5 g/dl (32.0-36.0); MEAN CORPUSCULAR VOLUME 85.5 fl (83.0-99.0); MEAN PLATELET VOLUME 10.7 fl (9.4-12.3); MONOCYTES ABSOLUTE AUTO 0.5 K/mm3 (0.0-0.8); MONOCYTES PERCENT AUTO 4.2 % (0.0-8.0); NEUTROPHILS ABSOLUTE AUTO 8.1 K/mm3 (1.8-7.7); NEUTROPHILS PERCENT AUTO 75.7 % (41.0-71.0); PLATELET COUNT,PLT 214 K/mm3 (150-400); RED BLOOD CELL COUNT 5.09 M/mm3 (4.10-5.30); WHITE BLOOD CELL COUNT,WBC 10.74 K/mm3 (3.9-11.3)
[2023-08-16] MEDS: Alum Hydrox/Mag Hydrox/Simeth 30 ML, Lidocaine 2% 15 ML PO ONE (23:55)
[2023-08-16] MEDS: Ketorolac 30 MG/ML SDV IVPUSH ONE (23:55)
[2023-08-16] MEDS: Ondansetron 4 MG/2 ML SDV IVPUSH ONE (23:55)
[2023-08-16] MEDS: Dicyclomine 20 MG/2 ML SDV IM ONE (23:55)
[2023-08-16] MEDS: Sodium Chloride 0.9% 10 ML Syringe FLUSH PRN (23:56)
[2023-08-17] MEDS: Iopamidol 612 MG/ML 100 ML Bottle IVPUSH ONE (00:53)
[2023-08-17] MEDS ORDERED: Sodium Chloride 0.9% 10 ML Syringe FLUSH PRN (00:53)
[2023-08-17 00:59] LABS: A/G RATIO 1.2 (1-2); ALBUMIN 4.3 g/dl (3.4-5.0); BILIRUBIN TOTAL 0.4 mg/dL (0.2-1.0); BUN/CREATININE RATIO 18.9 (14-18); C-REACTIVE PROTEIN 0.43 mg/dL (<0.30); CALCIUM 8.9 mg/dL (8.5-10.1); CREATININE 0.9 mg/dL (0.55-1.02); EST CRCL DRUG DOSING (CG) 74.92 mL/min
[2023-08-17] MEDS: Azithromycin 250 MG Tab PO ONE (01:53)
[2023-08-17 02:02] VITALS: BP 118/59; PULSE 61
== END 2023-08-17 02:00 | disposition home or self-care (01) ==
LOC: JD.ED 23:23
DX: K80.10 Calculus of gallbladder with chronic cholecystitis without obstruction (principal); Z79.2 Long term (current) use of antibiotics; Z79.899 Other long term (current) drug therapy; Z91.030 Bee allergy status; Z88.8 Allergy status to other drugs, medicaments and biological substances
CPT/HCPCS: 36415; 74177; 80053; 83690; 84703; 85025; 86140; 96372; 96374; 96375; 99284; A9270; J0500; J1885; J2405; J3490; Q9967

== ENCOUNTER 2023-09-21 18:11 | Inpatient (IN) | payer OTHER ==
[2023-09-21 18:39] LABS: BASOPHILS ABSOLUTE AUTO 0.1 K/mm3 (0.0-0.2); BASOPHILS PERCENT AUTO 0.8 % (0.0-1.0); EOSINOPHILS ABSOLUTE AUTO 0.2 K/mm3 (0.0-0.4); EOSINOPHILS PERCENT AUTO 2.4 % (0.0-6.0); HEMATOCRIT 46.6 % (37.0-47.0); HEMOGLOBIN 15.8 gm/dl (12.0-16.0); IMMATURE GRAN ABSOLUTE AUTO 0.02 K/mm3 (0.00-0.05); IMMATURE GRAN PERCENT AUTO 0.2 % (0.0-0.4); LYMPHOCYTES ABSOLUTE AUTO 2.2 K/mm3 (1.0-4.8); LYMPHOCYTES PERCENT AUTO 25.3 % (24.0-44.0); MEAN CORPUSCULAR HEMOGLOBIN 29.1 pg (28.0-32.0); MEAN CORPUSCULAR HGB CONC 33.9 g/dl (32.0-36.0); MEAN CORPUSCULAR VOLUME 85.8 fl (83.0-99.0); MEAN PLATELET VOLUME 11.5 fl (9.4-12.3); MONOCYTES ABSOLUTE AUTO 0.5 K/mm3 (0.0-0.8); MONOCYTES PERCENT AUTO 6.4 % (0.0-8.0); NEUTROPHILS ABSOLUTE AUTO 5.5 K/mm3 (1.8-7.7); NEUTROPHILS PERCENT AUTO 64.9 % (41.0-71.0); PLATELET COUNT,PLT 258 K/mm3 (150-400); RED BLOOD CELL COUNT 5.43 M/mm3 (4.10-5.30); WHITE BLOOD CELL COUNT,WBC 8.49 K/mm3 (3.9-11.3)
[2023-09-21] MEDS: HYDROmorphone 0.5 MG/0.5 ML Syringe IVPUSH ONE (18:44)
[2023-09-21] MEDS: Ondansetron 4 MG/2 ML SDV IVPUSH ONE (18:44)
[2023-09-21 19:02] LABS: A/G RATIO 1.1 (1-2); ALBUMIN 4.4 g/dl (3.4-5.0); ANION GAP 15.2 (5-15); BILIRUBIN TOTAL 0.5 mg/dL (0.2-1.0); BUN/CREATININE RATIO 18.9 (14-18); CALCIUM 9.2 mg/dL (8.5-10.1); CREATININE 0.9 mg/dL (0.55-1.02); EST CRCL DRUG DOSING (CG) 78.36 mL/min; PROTEIN TOTAL,TP 8.3 g/dl (6.4-8.2)
[2023-09-21 19:10] LABS: POTASSIUM,K 4.2 mEq/L (3.5-5.1)
[2023-09-21] MEDS: Sodium Chloride 0.9% 1,000 ML IV SCH ×2 (19:20→22:23)
[2023-09-21] MEDS: Hyoscyamine 0.125 MG Tab.SL SL ONE (19:21)
[2023-09-21] MEDS ORDERED: Ondansetron 4 MG/2 ML SDV IVPUSH PRN (21:38)
[2023-09-21] MEDS ORDERED: Naloxone 0.4 MG/ML SDV IVPUSH PRN (21:39)
[2023-09-21] MEDS: Piperacillin/Tazobactam 4.5 GM in Sodium Chloride 0.9% 100 ML IV ONE (22:24)
[2023-09-21] MEDS: Heparin Sodium 5,000 Units/ML Vial SUBCUT SCH (22:32)
[2023-09-22] MEDS: Piperacillin/Tazobactam 4.5 GM in Sodium Chloride 0.9% 100 ML IV SCH ×2 (00:54→03:18)
[2023-09-22 05:42] LABS: BASOPHILS ABSOLUTE AUTO 0.1 K/mm3 (0.0-0.2); BASOPHILS PERCENT AUTO 0.8 % (0.0-1.0); EOSINOPHILS ABSOLUTE AUTO 0.2 K/mm3 (0.0-0.4); HEMATOCRIT 36.5 % (37.0-47.0); IMMATURE GRAN ABSOLUTE AUTO 0.01 K/mm3 (0.00-0.05); IMMATURE GRAN PERCENT AUTO 0.2 % (0.0-0.4); LYMPHOCYTES ABSOLUTE AUTO 2.6 K/mm3 (1.0-4.8); LYMPHOCYTES PERCENT AUTO 39.6 % (24.0-44.0); MEAN CORPUSCULAR HEMOGLOBIN 29.6 pg (28.0-32.0); MEAN CORPUSCULAR VOLUME 87.1 fl (83.0-99.0); MEAN PLATELET VOLUME 11.4 fl (9.4-12.3); MONOCYTES ABSOLUTE AUTO 0.5 K/mm3 (0.0-0.8); MONOCYTES PERCENT AUTO 8.1 % (0.0-8.0); NEUTROPHILS ABSOLUTE AUTO 3.2 K/mm3 (1.8-7.7); NEUTROPHILS PERCENT AUTO 48.3 % (41.0-71.0); PLATELET COUNT,PLT 184 K/mm3 (150-400); RED BLOOD CELL COUNT 4.19 M/mm3 (4.10-5.30); WHITE BLOOD CELL COUNT,WBC 6.57 K/mm3 (3.9-11.3)
[2023-09-22 05:43] LABS: HEMOGLOBIN 12.4 gm/dl (12.0-16.0)
[2023-09-22 07:09] LABS: ANION GAP 10.8 (5-15); BILIRUBIN DIRECT 0.2 mg/dl (0.0-0.2); CALCIUM 7.5 mg/dL (8.5-10.1); EST CRCL DRUG DOSING (CG) 70.52 mL/min; MAGNESIUM 1.7 mg/dL (1.8-2.4); POTASSIUM,K 3.8 mEq/L (3.5-5.1)
[2023-09-22 07:22] LABS: PHOSPHORUS 4.4 mg/dL (2.6-4.7)
[2023-09-22] MEDS ORDERED: HYDROmorphone 0.5 MG/0.5 ML Syringe IVPUSH PRN ×2 (07:50→14:12)
[2023-09-22] MEDS ORDERED: fentaNYL 100 MCG/2 ML SDV IVPUSH PRN (07:50)
[2023-09-22] MEDS ORDERED: Ondansetron 4 MG/2 ML SDV IVPUSH PRN ×2 (07:50→14:12)
[2023-09-22] MEDS ORDERED: Lidocaine 1% 5 ML VIAL ONE (09:31)
[2023-09-22] MEDS ORDERED: Rocuronium 50 MG/5 ML Vial ONE (09:31)
[2023-09-22] MEDS ORDERED: Midazolam 1 MG/ML 2 ML SDV ONE (09:31)
[2023-09-22] MEDS ORDERED: fentaNYL 250 MCG/5 ML SDV ONE (09:31)
[2023-09-22] MEDS ORDERED: Ondansetron 4 MG/2 ML SDV ONE (09:31)
[2023-09-22] MEDS ORDERED: Propofol 200 MG/20 ML SDV ONE (09:31)
[2023-09-22] MEDS ORDERED: EPINEPHrine 1 MG/ML SDV ONE (10:02)
[2023-09-22] MEDS ORDERED: Lactated Ringers 1,000 ML ONE (11:14)
[2023-09-22] MEDS ORDERED: Dexamethasone 4 MG/ML 5 ML MDV ONE (11:28)
[2023-09-22] MEDS ORDERED: Sugammadex Sodium 200 MG/2 ML VIAL IV ONE (11:59)
[2023-09-22] MEDS ORDERED: Ketorolac 30 MG/ML SDV ONE (12:15)
[2023-09-22] MEDS: Ropivacaine 0.5% 5 MG/ML 30 ML SDV ONE (13:58)
[2023-09-22] MEDS: Lidocaine 2% 20 ML MDV ONE (13:58)
[2023-09-22] MEDS: HYDROmorphone 0.5 MG/0.5 ML Syringe IVPUSH PRN (14:22)
[2023-09-22] MEDS: fentaNYL 100 MCG/2 ML SDV IVPUSH PRN (14:50)
[2023-09-22] MEDS: Magnesium Sulfate/Water 2 GM in Premix Bag 1 BAG IV ONE (15:21)
[2023-09-22] MEDS: Ketorolac 30 MG/ML SDV IVPUSH PRN (16:48)
[2023-09-22] MEDS: Sodium Chloride 0.9% 1,000 ML IV SCH (16:56)
[2023-09-22] MEDS: Acetaminophen 325 MG Tab PO PRN (21:39)
[2023-09-23 05:51] LABS: BILIRUBIN DIRECT 0.2 mg/dl (0.0-0.2); BILIRUBIN TOTAL 0.9 mg/dL (0.2-1.0); BUN/CREATININE RATIO 8.8 (14-18); CALCIUM 8.1 mg/dL (8.5-10.1); CREATININE 0.8 mg/dL (0.55-1.02); EST CRCL DRUG DOSING (CG) 88.15 mL/min; MAGNESIUM 1.8 mg/dL (1.8-2.4); PHOSPHORUS 3.7 mg/dL (2.6-4.7)
[2023-09-23 08:01] VITALS: BP 96/56; PULSE 61
[2023-09-23 10:24] LABS: BASOPHILS PERCENT AUTO 0.2 % (0.0-1.0); HEMATOCRIT 36.8 % (37.0-47.0); HEMOGLOBIN 12.5 gm/dl (12.0-16.0); IMMATURE GRAN ABSOLUTE AUTO 0.02 K/mm3 (0.00-0.05); IMMATURE GRAN PERCENT AUTO 0.3 % (0.0-0.4); LYMPHOCYTES ABSOLUTE AUTO 1.4 K/mm3 (1.0-4.8); LYMPHOCYTES PERCENT AUTO 21.2 % (24.0-44.0); MEAN CORPUSCULAR HEMOGLOBIN 29.6 pg (28.0-32.0); MEAN PLATELET VOLUME 11.5 fl (9.4-12.3); MONOCYTES ABSOLUTE AUTO 0.7 K/mm3 (0.0-0.8); MONOCYTES PERCENT AUTO 10.7 % (0.0-8.0); NEUTROPHILS ABSOLUTE AUTO 4.3 K/mm3 (1.8-7.7); NEUTROPHILS PERCENT AUTO 67.6 % (41.0-71.0); PLATELET COUNT,PLT 201 K/mm3 (150-400); RED BLOOD CELL COUNT 4.23 M/mm3 (4.10-5.30); WHITE BLOOD CELL COUNT,WBC 6.38 K/mm3 (3.9-11.3)
== END 2023-09-23 10:59 | disposition home or self-care (01) | DRG 419 ==
LOC: JD.ED 18:11 → JD.MS 21:32
PROVIDERS: ADMIT Family Medicine; ATTEND Family Medicine
PROC: 0FT44ZZ Resection of Gallbladder, Percutaneous Endoscopic Approach (ICD-10-PCS; principal; 2023-09-22 11:30)
DX: K80.20 Calculus of gallbladder without cholecystitis without obstruction (principal); K21.9 Gastro-esophageal reflux disease without esophagitis; Z91.030 Bee allergy status; Z88.8 Allergy status to other drugs, medicaments and biological substances; Z79.899 Other long term (current) drug therapy; Z98.890 Other specified postprocedural states
CPT/HCPCS: 00790; 36415; 76705; 76705-26; 80048; 80053; 82247; 82248; 83690; 83735; 84100; 84703; 85025; 96361; 96374; 96375; 99284; 99285-25; A9270-GY; J0171; J1100; J1170; J1644; J1885; J2001; J2250; J2405; J2543; J2704; J2795; J3010; J3475; J3490; J7030; J7120

== ENCOUNTER 2024-05-12 21:33 | Emergency (ER) | payer BC ==
[2024-05-12 22:13] LABS: BASOPHILS PERCENT AUTO 0.3 % (0.0-1.0); EOSINOPHILS PERCENT AUTO 0.6 % (0.0-6.0); HEMATOCRIT 45.4 % (37.0-47.0); HEMOGLOBIN 15.5 gm/dl (12.0-16.0); IMMATURE GRAN ABSOLUTE AUTO 0.02 K/mm3 (0.00-0.05); IMMATURE GRAN PERCENT AUTO 0.3 % (0.0-0.4); LYMPHOCYTES ABSOLUTE AUTO 0.5 K/mm3 (1.0-4.8); LYMPHOCYTES PERCENT AUTO 7.7 % (24.0-44.0); MEAN CORPUSCULAR HEMOGLOBIN 29.5 pg (28.0-32.0); MEAN CORPUSCULAR HGB CONC 34.1 g/dl (32.0-36.0); MEAN CORPUSCULAR VOLUME 86.5 fl (83.0-99.0); MONOCYTES ABSOLUTE AUTO 0.3 K/mm3 (0.0-0.8); NEUTROPHILS ABSOLUTE AUTO 5.8 K/mm3 (1.8-7.7); NEUTROPHILS PERCENT AUTO 86.1 % (41.0-71.0); PLATELET COUNT,PLT 205 K/mm3 (150-400); RED BLOOD CELL COUNT 5.25 M/mm3 (4.10-5.30); WHITE BLOOD CELL COUNT,WBC 6.74 K/mm3 (3.9-11.3)
[2024-05-12] MEDS ORDERED: cefTRIAXone 500 MG Vial IVPUSH ONE (22:29)
[2024-05-12 22:37] LABS: A/G RATIO 1.1 (1-2); ALBUMIN 3.9 g/dl (3.4-5.0); ANION GAP 15.7 (5-15); BILIRUBIN TOTAL 0.5 mg/dL (0.2-1.0); EST CRCL DRUG DOSING (CG) 70.52 mL/min; MAGNESIUM 1.9 mg/dL (1.8-2.4); POTASSIUM,K 3.7 mEq/L (3.5-5.1); PROTEIN TOTAL,TP 7.4 g/dl (6.4-8.2)
[2024-05-12 22:47] LABS: CALCIUM 8.3 mg/dL (8.5-10.1)
[2024-05-12] MEDS: Sodium Chloride 0.9% 1,000 ML IV ONE (23:06)
[2024-05-12] MEDS: Ondansetron 4 MG/2 ML SDV IVPUSH ONE (23:06)
[2024-05-12] MEDS: Acetaminophen 325 MG Tab PO ONE (23:06)
[2024-05-12] MEDS: cefTRIAXone 1 GM Vial IVPUSH ONE (23:10)
[2024-05-13 00:29] LABS: APPEARANCE,URINE CLEAR (Clear); BILIRUBIN,URINE NEGATIVE (Negative); COLOR,URINE YELLOW (Yellow); GLUCOSE,URINE NEGATIVE (Negative); KETONES,URINE NEGATIVE (Negative); LEUKOCYTE ESTERASE,URINE NEGATIVE (Negative); NITRITE,URINE NEGATIVE (Negative); OCCULT BLOOD,URINE 1+ (Negative); PROTEIN,URINE 1+ (Negative); UROBILINOGEN,URINE 0.2 (0.2-1.0)
[2024-05-13 00:47] LABS: BACTERIA,URINE FEW /hpf (FEW); EPITHELIAL CELLS,URINE 0-5 /hpf (0-5); WBC,URINE 0-5 /hpf (0-5)
[2024-05-13 00:48] LABS: MUCUS,URINE FEW /hpf (FEW)
[2024-05-13] MEDS ORDERED: Naloxone 0.4 MG/ML SDV IVPUSH PRN (01:52)
[2024-05-13] MEDS: Ketorolac 30 MG/ML SDV IVPUSH ONE (02:35)
[2024-05-13] MEDS: HYDROmorphone 1 MG/ML Syringe IVPUSH ONE (02:35)
[2024-05-13] MEDS: Sodium Chloride 0.9% 1,000 ML IV ONE (02:40)
[2024-05-13 03:12] VITALS: BP 107/67; PULSE 76
== END 2024-05-13 03:05 | disposition home or self-care (01) ==
LOC: JD.ED 21:33
DX: R10.31 Right lower quadrant pain (principal); R39.15 Urgency of urination; R30.0 Dysuria; Z90.49 Acquired absence of other specified parts of digestive tract; Z88.8 Allergy status to other drugs, medicaments and biological substances; Z91.030 Bee allergy status; Z79.899 Other long term (current) drug therapy
CPT/HCPCS: 36415; 74176; 74176-26; 76830; 76830-26; 80053; 80306; 81001; 83690; 83735; 84703; 85025; 96361; 96374; 96375; 99284-25; A9270-GY; J0696; J1171; J1885; J2405; J7030